=== PATIENT | female | born 1995 | race Caucasian/White ===

== ENCOUNTER 2019-09-24 13:44 | Observation (INO) | payer OTHER ==
[2019-09-24] MEDS ORDERED: Lactated Ringers 1,000 ML IV ONE (14:33)
[2019-09-24] MEDS ORDERED: fentaNYL 100 MCG/2 ML SDV IVPUSH ONE (14:33)
[2019-09-24] MEDS ORDERED: Sodium Chloride 0.9% 10 ML Syringe FLUSH PRN (14:43)
[2019-09-24] MEDS ORDERED: Iopamidol 612 MG/ML 100 ML Bottle IVPUSH ONE ×2 (14:43→15:46)
--- NOTE | 2019-09-24 15:29 | PCM.SN.2 ---
- Free Text/Narrative Note: Called to start IV and obtain labs. Routine ultrasound IV start X1 attempt in right proximal basillic vein with 20g 1.88" catheter. Sterile chloroprep. Secured with tegaderm in usual fashion.
[2019-09-24] MEDS ORDERED: Sodium Chloride 0.9% 10 ML Syringe FLUSH ONE (15:46)
[2019-09-24] MEDS ORDERED: Iopamidol 612 MG/ML 50 ML SDV IVPUSH ONE (15:46)
--- NOTE | 2019-09-24 16:23 | EDM.PDOC ---
ED HPI GENERAL MEDICAL PROBLEM - General Chief Complaint: Trauma Stated Complaint: [facility] Time Seen by Provider: 09/24/19 13:44 - History of Present Illness INITIAL COMMENTS - FREE TEXT/NARRATIVE: 24-year-old female brought into the emergency room by EMS after having a mishap with a horse. Patient was riding a horse the horse spooked reared back and fell backwards the patient stayed on the horse however the patient landed on her buttocks and then the horse landed on her over her pelvis. The patient complains of hip pain bilaterally. She denies hitting her head she is alert and oriented. She was picked up by EMS put in an immobilization using an air assisted backboard. Patient denies any other pain at this time other than her hips. Patient believes she is up-to-date on all her immunizations. Denies any nausea or vomiting just has her hip pain. Left Buttock Pain Score (Numeric/FACES): 4 Left Pelvic Pain Score (Numeric/FACES): 4 - Related Data Allergies Allergy/AdvReac Type Severity Reaction Status Date / Time acetaminophen [From Percocet] Allergy Severe Chest Pain Verified 09/24/19 13:55 oxycodone Allergy Severe Chest Pain Verified 09/24/19 13:55 Home Meds: Home Meds Control 1 tab PO DAILY 09/24/19 [History] Past Medical History - Past Surgical History HEENT Surgical History: Reports: Oral Surgery Social & Family History - Tobacco Use Smoking Status *Q: Never Smoker - Caffeine Use Caffeine Use: Reports: Coffee - Recreational Drug Use Recreational Drug Use: No Review of Systems - Review of Systems Review Of Systems: See Below Constitutional: Reports: No Symptoms Eyes: Reports: No Symptoms Ears: Reports: No Symptoms Nose: Reports: No Symptoms Mouth/Throat: Reports: No Symptoms Respiratory: Reports: No Symptoms Cardiovascular: Reports: No Symptoms GI/Abdominal: Reports: No Symptoms Genitourinary: Reports: No Symptoms Musculoskeletal: Reports: Other (Hip and pelvis pain) Skin: Reports: No Symptoms Neurological: Reports: No Symptoms Psychiatric: Reports: No Symptoms ED EXAM, GENERAL - Physical Exam Exam: See Below Free Text/Narrative:: The patient was really had a primary survey no real problems identified there secondary survey showed some bilateral hip pain. Abdominal exam was entirely within normal limits. Heart sounds and lateral breath sounds were normal. She did not appear to have any cervical midline discomfort exam done with a c- collar in place. The patient was then gently logrolled. Completed the C-spine exam and the c-collar was removed the patient was relieved somewhat with this. Examination of her back reveals no step-off deformity with palpation along the spine. She demonstrated very good breath sounds noted bilaterally. No other areas of ecchymosis or significant skin changes noted at that time. The backboard was removed patient was gently laid back onto her back. Had the remainder of her exam done no other abnormalities noted except for her bilateral hip pain. However direct palpation over the greater trochanters did not really elicit much discomfort pelvic injury was suspected and she was sent over for an abdominal pelvic CT. Exam Limited By: No Limitations General Appearance: Other (She does well until she is moved and this is uncomfortable for her) Eye Exam: Bilateral Eye: Normal Inspection Ears: Normal External Exam, Normal Canal, Hearing Grossly Normal, Normal TMs Nose: Normal Inspection, Normal Mucosa, No Blood Throat/Mouth: Normal Inspection, Normal Lips, Normal Teeth, Normal Gums, Normal Oropharynx, Normal Voice, No Airway Compromise Head: Atraumatic, Normocephalic Neck: Normal Inspection, Supple, Non-Tender, Full Range of Motion, Other (C- collar was removed the patient was able to demonstrate full flexion of her neck she could bring her chin all the way down to her chest without any discomfort she can turn her head from side to side without any discomfort she could look all the way up without any discomfort.). No: Tender Lateral, Tender Midline Respiratory/Chest: No Respiratory Distress, Lungs Clear, Normal Breath Sounds, No Accessory Muscle Use, Chest Non-Tender, Other (Of the chest anteriorly posteriorly and laterally reveals no palpable discomfort with significant pressure over the rib cage. Breath sounds are noted to be equal and appropriate bilaterally) Cardiovascular: Regular Rate, Rhythm, No Edema, No Murmur GI/Abdominal: Normal Bowel Sounds, Soft, Non-Tender, No Organomegaly, Other ( Patient did have some discomfort with palpation over the pelvis however did not demonstrate any pelvis instability). No: Pelvis Stable Back Exam: Normal Inspection. No: CVA Tenderness (L), Muscle Spasm, Paraspinal Tenderness, Vertebral Tenderness Extremities: Normal Inspection, No Pedal Edema Neurological: Alert, Oriented, CN II-XII Intact, Normal Cognition Psychiatric: Normal Affect, Normal Mood Skin Exam: Warm, Dry, Intact Lymphatic: No Adenopathy Course - Vital Signs Last Recorded V/S: Last Vital Signs Temp 37.0 C 09/24/19 18:40 Pulse 92 09/24/19 18:40 Resp 20 09/24/19 18:40 BP 99/71 09/24/19 18:40 Pulse Ox 99 09/24/19 18:40 - Orders/Labs/Meds Orders: Active Orders 24 hr Category Date Time Status Abdomen Pelvis w Cont [CT] Stat Exams 09/24/19 14:29 Taken Femur Min 2V Lt [CR] Stat Exams 09/24/19 16:12 Taken Femur Min 2V Rt [CR] Stat Exams 09/24/19 16:12 Taken Sodium Chloride 0.9% [Saline Flush] Med 09/24/19 14:43 Active 10 ml FLUSH ONETIME PRN Medication Orders Sodium Chloride (Saline Flush) 10 ml FLUSH ONETIME PRN PRN Reason: Keep Vein Open Last Admin: 09/24/19 15:15 Dose: 10 ml Labs: Laboratory Tests 09/24/19 09/24/19 09/24/19 Range/Units 15:15 15:15 17:10 WBC 16.03 H (3.98-10.04) K/mm3 RBC 5.08 (3.98-5.22) M/mm3 Hgb 15.6 (11.2-15.7) gm/dl Hct 44.9 (34.1-44.9) % MCV 88.4 (79.4-94.8) fl MCH 30.7 (25.6-32.2) pg MCHC 34.7 (32.2-35.5) g/dl RDW Std Deviation 41.1 (36.4-46.3) fL Plt Count 337 (182-369) K/mm3 MPV 10.0 (9.4-12.3) fl Neut % (Auto) 84.9 H (34.0-71.1) % Lymph % (Auto) 7.9 L (19.3-51.7) % Page % (Auto) 6.6 (4.7-12.5) % Eos % (Auto) 0.1 L (0.7-5.8) Baso % (Auto) 0.1 (0.1-1.2) % Neut # (Auto) 13.64 H (1.56-6.13) K/mm3 Lymph # (Auto) 1.26 (1.18-3.74) K/mm3 [place] # (Auto) 1.05 H (0.24-0.36) K/mm3 Eos # (Auto) 0.01 L (0.04-0.36) K/mm3 Baso # (Auto) 0.01 (0.01-0.08) K/mm3 Manual Slide Review Sodium 139 (136-145) mEq/L Potassium 3.5 (3.5-5.1) mEq/L Chloride 102 (98-107) mEq/L Carbon Dioxide 27 (21-32) mEq/L Anion Gap 13.5 (5-15) BUN 12 (7-18) mg/dL Creatinine 0.9 (0.55-1.02) mg/dL Est Cr Clr Drug Dosing 81.11 mL/min Estimated GFR (MDRD) > 60 (>60) mL/min BUN/Creatinine Ratio 13.3 L (14-18) Glucose 93 (74-106) mg/dL Calcium 9.5 (8.5-10.1) mg/dL Total Bilirubin 0.6 (0.2-1.0) mg/dL AST 36 (15-37) U/L ALT 44 (14-59) U/L Alkaline Phosphatase 194 H (46-116) U/L Total Protein 7.8 (6.4-8.2) g/dl Albumin 4.0 (3.4-5.0) g/dl Globulin 3.8 gm/dL Albumin/Globulin Ratio 1.1 (1-2) Lipase 94 (73-393) U/L Urine Color Yellow (Yellow) Urine Appearance Clear (Clear) Urine pH 7.0 (5.0-8.0) Ur Specific [place] 1.020 (1.005-1.030) Urine Protein Negative (Negative) Urine Glucose (UA) Negative (Negative) Urine Ketones Negative (Negative) Urine Occult Blood Trace-lysed H (Negative) Urine Nitrite Negative (Negative) Urine Bilirubin Negative (Negative) Urine Urobilinogen 0.2 (0.2-1.0) Ur Leukocyte Esterase Negative (Negative) Urine RBC 0-5 (0-5) /hpf Urine WBC 0-5 (0-5) /hpf Ur Squamous Epith Cells 0-5 (0-5) /hpf Urine Bacteria Few (FEW) /hpf Urine Mucus Few (FEW) /hpf Meds: Medications Generic Name Dose Route Start Last Admin Trade Name Itzel PRN Reason Stop Dose Admin Sodium Chloride 10 ml 09/24/19 14:43 09/24/19 15:15 Saline Flush FLUSH 10 ml ONETIME PRN Administration Keep Vein Open Discontinued Medications Generic Name Dose Route Start Last Admin Trade Name Itzel PRN Reason Stop Dose Admin Fentanyl 50 mcg 09/24/19 14:33 09/24/19 18:41 Sublimaze IVPUSH 09/24/19 14:34 50 mcg ONETIME ONE Administration Lactated Ringer's 1,000 mls @ 999 mls/hr 09/24/19 14:33 09/24/19 15:34 Ringers, Lactated IV 09/24/19 15:33 999 mls/hr .BOLUS ONE Administration Iopamidol 125 ml 09/24/19 14:43 Isovue-300 (61%) IVPUSH 09/24/19 14:44 ONETIME ONE Iopamidol 100 ml 09/24/19 15:46 09/24/19 15:55 Isovue-300 (61%) IVPUSH 09/24/19 15:47 100 ml ONETIME ONE Administration Iopamidol 50 ml 09/24/19 15:46 09/24/19 15:55 Isovue-300 (61%) IVPUSH 09/24/19 15:47 25 ml ONETIME ONE Administration Ondansetron HCl Confirm 09/24/19 19:17 09/24/19 19:27 Zofran Administered 09/24/19 19:18 Not Given Dose 4 mg .ROUTE .STK-MED ONE Ondansetron HCl 4 mg 09/24/19 19:20 09/24/19 19:22 Zofran IVPUSH 09/24/19 19:21 4 mg ONETIME ONE Administration Sodium Chloride 10 ml 09/24/19 15:46 09/24/19 15:56 Saline Flush FLUSH 09/24/19 15:47 10 ml ONETIME ONE Administration - Re-Assessments/Exams Free Text/Narrative Re-Assessment/Exam: 09/24/19 16:18 Patient evaluated labs ordered x-rays ordered however her hip x-ray is were canceled somehow. We will check x-rays of her femurs bilaterally. Her CT was obtained abdomen and pelvis which shows a left pelvic ring fracture no other acute changes noted. At this point she is doing better if she has not moved too much. Would like to run this by orthopedics but want to get the femur x- rays prior visualized portion of the hip joints look normal on the CT. 09/24/19 17:00 Still awaiting x-rays of the femurs bilaterally 09/24/19 19:38 Did get the x-rays done of the femur talked over with Dr. Sanchez orthopedic at [facility] in [place] who recommends conservative management the patient could not go home or stay in the hospital until she gets up up on her feet. Discussed this options with the patient and initially the patient thought she wanted to stay in the hospital however she lives in [place] it decided maybe she be better off going home. I did discuss situation with Dr. Gutiérrez, our hospitalist, who is willing to admit the patient. We did attempt to stand the patient up and she tolerated this from a pain standpoint. However she became lightheaded her blood pressure dropped she became diaphoretic and lightheaded. The patient was put back in bed and would like to eat something she was given a sandwich we will see how she does after this. 09/24/19 20:34 Did get the patient back up and ambulate after she ate she was feeling better. However she can only go a couple steps and the pain became too severe. The patient does not really have any significant pain unless she is really trying to do something changing positions or get up and ambulate. She also got pale and a little diaphoretic this time when she stood up. Dr. Glass will assume care of the patient at this time. The patient understands that she needs to stay in the hospital at this point. Departure - Departure Time of Disposition: 20:36 Disposition: Refer to Observation Clinical Impression: Closed fracture of left pelvis - Discharge Information Referrals: PCP,Not In Area [Primary Care Provider] - Forms: ED Department Discharge Sepsis Event Note - Evaluation Sepsis Screening Result: No Definite Risk - Focused Exam Vital Signs: Vital Signs Temp Pulse Resp BP Pulse Ox 09/24/19 18:40 37.0 C 92 20 99/71 99 09/24/19 16:11 37.2 C 86 18 97/70 96 09/24/19 15:25 36.9 C 100 16 95/69 100 09/24/19 13:57 36.9 C 99 13 109/79 100 Date Exam was Performed: 09/24/19 Time Exam was Performed: 20:34 - My Orders Last 24 Hours: My Active Orders 09/24/19 14:29 Abdomen Pelvis w Cont [CT] Stat 09/24/19 14:43 Sodium Chloride 0.9% [Saline Flush] 10 ml FLUSH ONETIME PRN 09/24/19 16:12 Femur Min 2V Lt [CR] Stat Femur Min 2V Rt [CR] Stat - Assessment/Plan Last 24 Hours: My Active Orders 09/24/19 14:29 Abdomen Pelvis w Cont [CT] Stat 09/24/19 14:43 Sodium Chloride 0.9% [Saline Flush] 10 ml FLUSH ONETIME PRN 09/24/19 16:12 Femur Min 2V Lt [CR] Stat Femur Min 2V Rt [CR] Stat
[2019-09-24] MEDS ORDERED: Ondansetron 4 MG/2 ML SDV ONE (19:17)
[2019-09-24] MEDS ORDERED: Ondansetron 4 MG/2 ML SDV IVPUSH ONE (19:20)
[2019-09-24] MEDS ORDERED: Ondansetron 4 MG/2 ML SDV IV PRN (21:21)
[2019-09-24] MEDS ORDERED: Acetaminophen 325 MG Tab PO PRN (21:21)
--- NOTE | 2019-09-24 21:43 | PCM.HP.2 ---
H&P History of Present Illness - General Date of Service: 09/24/19 Admit Problem/Dx: Admission Diagnosis/Problem Admission Diagnosis/Problem Closed fracture of pelvis - History of Present Illness Initial Comments - Free Text/Narative: 22-year-old female brought into the emergency department by EMS after having a horse fall backwards on her. Patient was moving cattle and riding a horse when the horse got spooked, reared back, and then fell backwards on top of the patient. Patient landed on her back and buttocks and the horse landed on her left pelvis. Horse then rolled off. Patient denies any loss of consciousness or hitting her head. She had some numbness initially down her legs although she can move them. She did not move and waited for EMS. When patient arrived at the emergency department a trauma alert was called. Ultimately a CT of the abdomen and pelvis with contrast was performed. Left pelvic ring fracture, comminuted left superior pubic ramus fracture, nondisplaced inferior pubic ramus fracture, with intact symphysis pubis and no associated joint diastasis. Bilateral femur x-rays were negative for fracture. Emergency department provider did talk to the on-call orthopedic surgeon at [facility] in [place] who recommended conservative management. Patient tried 2 times to be able to walk but became lightheaded and dizzy with each. At that point it was felt that she should be admitted for pain control and physical therapy. Patient had received IV fentanyl, liter of LR, and Zofran in the emergency department. She had a slight leukocytosis with a white count of 16,000 likely secondary to stress reaction. Otherwise labs were normal. Left Buttock Pain Score (Numeric/FACES): 4 Left Pelvic Pain Score (Numeric/FACES): 4 - Related Data Allergies/Adverse Reactions: Allergies Allergy/AdvReac Type Severity Reaction Status Date / Time oxycodone Allergy Severe Chest Pain Verified 09/24/19 13:55 Home Medications: Home Meds Control 1 tab PO DAILY 09/24/19 [History] Methylphenidate HCl [Concerta] 27 mg PO DAILY 09/25/19 [History] Past Medical History - Past Surgical History HEENT Surgical History: Reports: Oral Surgery Social & Family History - Tobacco Use Smoking Status *Q: Never Smoker - Caffeine Use Caffeine Use: Reports: Coffee - Recreational Drug Use Recreational Drug Use: No H&P Review of Systems - Review of Systems: Review Of Systems: Comprehensive ROS is negative, except as noted in HPI. Exam - Exam Exam: See Below - Vital Signs Vital Signs: Last Vital Signs Temp 98.6 F 09/24/19 18:40 Pulse 92 09/24/19 18:40 Resp 20 09/24/19 18:40 BP 99/71 09/24/19 18:40 Pulse Ox 99 09/24/19 18:40 Weight: 160 lb - Exam Quality Assessment: No: Supplemental Oxygen General: Alert, Oriented, 4 HEENT: Conjunctiva Clear, Hearing Intact, Mucosa Moist & [place] Neck: Supple, Trachea Midline, 2 Lungs: Clear to Auscultation, Normal Respiratory Effort Cardiovascular: Regular Rate, Regular Rhythm GI/Abdominal Exam: Normal Bowel Sounds, Soft, Non-Tender, No Organomegaly, No Distention, No Abnormal Bruit, No Mass Extremities: Normal Inspection, Normal Range of Motion, Non-Tender, No Pedal Edema, Normal Capillary Refill, Leg Pain Peripheral Pulses: 2+: Posterior Tibial (L), Posterior Tibial (R), Dorsalis Pedis (L), Dorsalis Pedis (R) Skin: Warm, Dry, Intact Neurological: Cranial Nerves Intact, Reflexes Equal Bilateral Neuro Extensive - Mental Status: Alert, Oriented x3, Normal Mood/Affect, Normal Cognition, Memory Intact Neuro Extensive - Motor, Sensory, Reflexes: CN II-XII Intact, Other (Sensation intact to lower extremities to light touch.) Psychiatric: Alert, Normal Affect, Normal Mood - Patient Data Lab Results Last 24 hrs: Laboratory Results - last 24 hr 09/24/19 09/24/19 09/24/19 Range/Units 15:15 15:15 17:10 WBC 16.03 H (3.98-10.04) K/mm3 RBC 5.08 (3.98-5.22) M/mm3 Hgb 15.6 (11.2-15.7) gm/dl Hct 44.9 (34.1-44.9) % MCV 88.4 (79.4-94.8) fl MCH 30.7 (25.6-32.2) pg MCHC 34.7 (32.2-35.5) g/dl RDW Std Deviation 41.1 (36.4-46.3) fL Plt Count 337 (182-369) K/mm3 MPV 10.0 (9.4-12.3) fl Neut % (Auto) 84.9 H (34.0-71.1) % Lymph % (Auto) 7.9 L (19.3-51.7) % [place] % (Auto) 6.6 (4.7-12.5) % Eos % (Auto) 0.1 L (0.7-5.8) Baso % (Auto) 0.1 (0.1-1.2) % Neut # (Auto) 13.64 H (1.56-6.13) K/mm3 Lymph # (Auto) 1.26 (1.18-3.74) K/mm3 [place] # (Auto) 1.05 H (0.24-0.36) K/mm3 Eos # (Auto) 0.01 L (0.04-0.36) K/mm3 Baso # (Auto) 0.01 (0.01-0.08) K/mm3 Manual Slide Review Sodium 139 (136-145) mEq/L Potassium 3.5 (3.5-5.1) mEq/L Chloride 102 (98-107) mEq/L Carbon Dioxide 27 (21-32) mEq/L Anion Gap 13.5 (5-15) BUN 12 (7-18) mg/dL Creatinine 0.9 (0.55-1.02) mg/dL Est Cr Clr Drug Dosing 81.11 mL/min Estimated GFR (MDRD) > 60 (>60) mL/min BUN/Creatinine Ratio 13.3 L (14-18) Glucose 93 (74-106) mg/dL Calcium 9.5 (8.5-10.1) mg/dL Total Bilirubin 0.6 (0.2-1.0) mg/dL AST 36 (15-37) U/L ALT 44 (14-59) U/L Alkaline Phosphatase 194 H (46-116) U/L Total Protein 7.8 (6.4-8.2) g/dl Albumin 4.0 (3.4-5.0) g/dl Globulin 3.8 gm/dL Albumin/Globulin Ratio 1.1 (1-2) Lipase 94 (73-393) U/L Urine Color Yellow (Yellow) Urine Appearance Clear (Clear) Urine pH 7.0 (5.0-8.0) Ur Specific [place] 1.020 (1.005-1.030) Urine Protein Negative (Negative) Urine Glucose (UA) Negative (Negative) Urine Ketones Negative (Negative) Urine Occult Blood Trace-lysed H (Negative) Urine Nitrite Negative (Negative) Urine Bilirubin Negative (Negative) Urine Urobilinogen 0.2 (0.2-1.0) Ur Leukocyte Esterase Negative (Negative) Urine RBC 0-5 (0-5) /hpf Urine WBC 0-5 (0-5) /hpf Ur Squamous Epith Cells 0-5 (0-5) /hpf Urine Bacteria Few (FEW) /hpf Urine Mucus Few (FEW) /hpf Result Diagrams: 09/24/19 15:15 09/24/19 15:15 Sepsis Event Note - Evaluation Sepsis Screening Result: No Definite Risk - Focused Exam Vital Signs: Vital Signs Temp Pulse Resp BP Pulse Ox 09/24/19 18:40 98.6 F 92 20 99/71 99 09/24/19 16:11 98.9 F 86 18 97/70 96 09/24/19 15:25 98.5 F 100 16 95/69 100 09/24/19 13:57 98.4 F 99 13 109/79 100 Date Exam was Performed: 09/25/19 Time Exam was Performed: 11:34 Problem List Initiated/Reviewed/Updated: Yes Orders Last 24hrs: Active Orders 24 hr Category Date Time Status Admission Status [Patient Status] [ADT] Routine ADT 09/24/19 21:12 Active Oxygen Therapy [RC] PRN Care 09/24/19 21:21 Ordered Up With Assistance [RC] ASDIRECTED Care 09/24/19 21:21 Ordered VTE/DVT Education [RC] PER UNIT ROUTINE Care 09/24/19 21:21 Ordered Vital Signs [RC] ASDIRECTED Care 09/24/19 21:21 Ordered Regular Diet [DIET] Diet 09/25/19 Breakfast Ordered Abdomen Pelvis w Cont [CT] Stat Exams 09/24/19 14:29 Taken Femur Min 2V Lt [CR] Stat Exams 09/24/19 16:12 Taken Femur Min 2V Rt [CR] Stat Exams 09/24/19 16:12 Taken Acetaminophen [Tylenol] Med 09/24/19 21:21 Ordered 650 mg PO Q4H PRN HYDROmorphone [Dilaudid] Med 09/24/19 21:21 Ordered 0.5 mg IVPUSH Q2H PRN Ketorolac [Toradol] Med 09/24/19 21:21 Ordered 30 mg IV Q6H PRN Ondansetron [Zofran] Med 09/24/19 21:21 Ordered 4 mg IV Q4H PRN Sodium Chloride 0.9% [Saline Flush] Med 09/24/19 14:43 Active 10 ml FLUSH ONETIME PRN traMADol [Ultram] Med 09/24/19 21:24 Ordered 100 mg PO Q6H PRN Resuscitation Status Routine Resus Stat 09/24/19 21:21 Ordered Medication Orders Acetaminophen (Tylenol) 650 mg PO Q4H PRN PRN Reason: Pain (Mild 1-3)/fever Hydromorphone HCl (Dilaudid) 0.5 mg IVPUSH Q2H PRN PRN Reason: Pain (severe 7-10) Ketorolac Tromethamine (Toradol) 30 mg IV Q6H PRN PRN Reason: Pain (moderate 4-6) Ondansetron HCl (Zofran) 4 mg IV Q4H PRN PRN Reason: Nausea/Vomiting Sodium Chloride (Saline Flush) 10 ml FLUSH ONETIME PRN PRN Reason: Keep Vein Open Last Admin: 09/24/19 15:15 Dose: 10 ml Tramadol HCl (Ultram) 100 mg PO Q6H PRN PRN Reason: Pain (moderate 4-6) Assessment/Plan Comment:: Left pelvic ring fracture after fall from horse * Horse reared back and fell backwards landing on her left pelvis. * CT was reviewed by Dr. Duong in orthopedic surgery at [facility] in [place]. He recommends conservative management. * Patient was unable to be discharged home secondary to pain and dizziness with standing. * Mild leukocytosis secondary to stress reaction. Plan * Refer for observation * Pain management * PT in the morning * Nursing care to help with ambulation * DC tomorrow if appropriate. CODE STATUS: Full code - Mortality Measure Prognosis:: Good
[2019-09-24] MEDS: HYDROmorphone 0.5 MG/0.5 ML Syringe IVPUSH PRN (22:46)
[2019-09-24] MEDS: Ketorolac 30 MG/ML SDV IV PRN (22:52)
[2019-09-25] MEDS: traMADol 50 MG Tab PO PRN ×2 (04:27→12:28)
[2019-09-25] MEDS: HYDROmorphone 0.5 MG/0.5 ML Syringe IVPUSH PRN ×2 (04:27→08:59)
--- NOTE | 2019-09-25 09:56 | CR ---
Left femur: AP and lateral views left femur were obtained. Comparison: No previous femur study. No fracture or other bony abnormality is seen. No soft tissue abnormality is appreciated. Impression: 1. Nothing acute is seen on 2 view left femur study. Diagnostic code #1 Study was dictated in MDT
--- NOTE | 2019-09-25 09:56 | CT ---
CT abdomen and pelvis Technique: Multiple axial sections were obtained from slightly below the top the liver inferiorly to the pubic symphysis. Intravenous contrast was utilized. No oral contrast has been given. Comparison: No prior abdominal imaging is available. Findings: Visualized lung bases show nothing acute. Liver shows no focal parenchymal abnormality. Spleen appears within normal limits. Gallbladder contains no calcified gallstones. Pancreas appears within normal limits. Adrenal glands show no nodule. Kidneys show symmetric contrast enhancement without hydronephrosis or mass. Aorta shows no aneurysm. No retroperitoneal adenopathy or mesenteric abnormalities are seen. No pelvic mass or adenopathy is seen. No free fluid is seen. Asymmetric thickening of the pelvic sidewall on the left side compatible with small intrapelvic side wall hematoma. Nondisplaced fracture is noted within the left inferior pubic ramus with minimally displaced fracture within the superior pubic ramus near the pubic symphysis. No additional pelvic fracture is seen. Lumbar spine shows no fracture. Impression: 1. Left pubic rami fractures as noted above. Adjacent small pelvic sidewall hematoma. 2. No other acute abnormality is appreciated on CT study of the abdomen and pelvis. Diagnostic code #3 Agree with preliminary report issued by [facility] ([facility] preliminary report dictated on 09/24/19, 5:04 PM Central Daylight Time) Study was dictated in MDT
--- NOTE | 2019-09-25 09:56 | CR ---
Right femur: AP and lateral views of the right femur were obtained. Comparison: No previous femur study. No fracture or other bony abnormality is seen. Impression: 1. No abnormality is identified on 2 view right femur exam. Diagnostic code #1 Study was dictated in MDT
--- NOTE | 2019-09-25 11:47 | PCM.DCSUM1 ---
Discharge Summary - Hospital Course HPI Initial Comments: 24-year-old female brought into the emergency department by EMS after having a horse fall backwards on her. Patient was moving cattle and riding a horse when the horse got spooked, reared back, and then fell backwards on top of the patient. Patient landed on her back and buttocks and the horse landed on her left pelvis. Horse then rolled off. Patient denies any loss of consciousness or hitting her head. She had some numbness initially down her legs although she can move them. She did not move and waited for EMS. When patient arrived at the emergency department a trauma alert was called. Ultimately a CT of the abdomen and pelvis with contrast was performed. Left pelvic ring fracture, comminuted left superior pubic ramus fracture, nondisplaced inferior pubic ramus fracture, with intact symphysis pubis and no associated joint diastasis. Bilateral femur x-rays were negative for fracture. Emergency department provider did talk to the on-call orthopedic surgeon at [facility] in [place] who recommended conservative management. Patient tried 2 times to be able to walk but became lightheaded and dizzy with each. At that point it was felt that she should be admitted for pain control and physical therapy. Patient had received IV fentanyl, liter of LR, and Zofran in the emergency department. She had a slight leukocytosis with a white count of 16,000 likely secondary to stress reaction. Otherwise labs were normal. Diagnosis: Stroke: No - Discharge Data Discharge Date: 09/25/19 Discharge Disposition: Home, Self-Care 01 Condition: Stable - Referral to Home Health Primary Care Physician: PCP Not In Area - Discharge Diagnosis/Problem(s) (1) Closed fracture of left pelvis SNOMED Code(s): 22136778 ICD Code: S32.9XXA - FRACTURE OF UNSP PARTS OF LUMBOSACRAL SPINE AND PELVIS, INIT Status: Acute Current Visit: Yes - Patient Summary/Data Consults: Consultations 09/24/19 21:43 PT Evaluation and Treatment [CONS] Routine Hospital Course: Millicent was treated with Toradol, Dilaudid, and Ultram over the evening. Physical therapy evaluated her this morning and felt she was safe for discharge. Patient has family that came from [place] to pick her up. She has a front wheeled walker at home. - Patient Instructions Diet: Usual Diet as Tolerated Activity: As Tolerated (With front wheel walker) Driving: Do Not Drive Showering/Bathing: May Shower Other/Special Instructions: Follow-up with primary care provider in 1 to 2 weeks. - Discharge Plan *PRESCRIPTION DRUG MONITORING PROGRAM REVIEWED*: No *COPY OF PRESCRIPTION DRUG MONITORING REPORT IN PATIENT PETERSON: No Prescriptions/Med Rec: Ondansetron [Zofran ODT] 4 mg PO Q6H PRN #5 tab.dis PRN Reason: Nausea traMADol [Ultram] 100 mg PO Q6H PRN #20 tablet PRN Reason: Pain (Moderate 4-6) Home Medications: Home Meds Control 1 tab PO DAILY 09/24/19 [History] Methylphenidate HCl [Concerta] 27 mg PO DAILY 09/25/19 [History] Ondansetron [Zofran ODT] 4 mg PO Q6H PRN #5 tab.dis 09/25/19 [Rx] traMADol [Ultram] 100 mg PO Q6H PRN #20 tablet 09/25/19 [Rx] Oxygen Therapy Mode: Room Air Forms: ED Department Discharge Referrals: PCP,Not In Area [Primary Care Provider] - - Discharge Summary/Plan Comment DC Time >30 min.: No Discharge Summary/Plan Comment: Discharged home in stable condition. Follow-up with primary care provider in 2 weeks. - General Info Date of Service: 09/25/19 Admission Dx/Problem (Free Text: Admission Diagnosis/Problem Admission Diagnosis/Problem Closed fracture of pelvis Subjective Update: Patient states she is feeling better. Pain is a 1 with Ultram. Functional Status: Reports: Pain Controlled - Review of Systems General: Reports: No Symptoms HEENT: Reports: No Symptoms Pulmonary: Reports: No Symptoms Cardiovascular: Reports: No Symptoms Gastrointestinal: Reports: No Symptoms - Patient Data Vitals - Most Recent: Last Vital Signs Temp 98.1 F 09/25/19 07:46 Pulse 69 09/25/19 07:46 Resp 20 09/25/19 07:46 BP 95/57 L 09/25/19 07:46 Pulse Ox 99 09/25/19 07:46 Weight - Most Recent: 160 lb I&O - Last 24 hours: Intake & Output 09/24/19 09/25/19 09/25/19 22:59 06:59 14:59 Intake Total 300 120 Balance 300 120 Lab Results - Last 24 hrs: Laboratory Results - last 24 hr 09/24/19 09/24/19 09/24/19 Range/Units 15:15 15:15 17:10 WBC 16.03 H (3.98-10.04) K/mm3 RBC 5.08 (3.98-5.22) M/mm3 Hgb 15.6 (11.2-15.7) gm/dl Hct 44.9 (34.1-44.9) % MCV 88.4 (79.4-94.8) fl MCH 30.7 (25.6-32.2) pg MCHC 34.7 (32.2-35.5) g/dl RDW Std Deviation 41.1 (36.4-46.3) fL Plt Count 337 (182-369) K/mm3 MPV 10.0 (9.4-12.3) fl Neut % (Auto) 84.9 H (34.0-71.1) % Lymph % (Auto) 7.9 L (19.3-51.7) % [place] % (Auto) 6.6 (4.7-12.5) % Eos % (Auto) 0.1 L (0.7-5.8) Baso % (Auto) 0.1 (0.1-1.2) % Neut # (Auto) 13.64 H (1.56-6.13) K/mm3 Lymph # (Auto) 1.26 (1.18-3.74) K/mm3 [place] # (Auto) 1.05 H (0.24-0.36) K/mm3 Eos # (Auto) 0.01 L (0.04-0.36) K/mm3 Baso # (Auto) 0.01 (0.01-0.08) K/mm3 Manual Slide Review Sodium 139 (136-145) mEq/L Potassium 3.5 (3.5-5.1) mEq/L Chloride 102 (98-107) mEq/L Carbon Dioxide 27 (21-32) mEq/L Anion Gap 13.5 (5-15) BUN 12 (7-18) mg/dL Creatinine 0.9 (0.55-1.02) mg/dL Est Cr Clr Drug Dosing 81.11 mL/min Estimated GFR (MDRD) > 60 (>60) mL/min BUN/Creatinine Ratio 13.3 L (14-18) Glucose 93 (74-106) mg/dL Calcium 9.5 (8.5-10.1) mg/dL Total Bilirubin 0.6 (0.2-1.0) mg/dL AST 36 (15-37) U/L ALT 44 (14-59) U/L Alkaline Phosphatase 194 H (46-116) U/L Total Protein 7.8 (6.4-8.2) g/dl Albumin 4.0 (3.4-5.0) g/dl Globulin 3.8 gm/dL Albumin/Globulin Ratio 1.1 (1-2) Lipase 94 (73-393) U/L Urine Color Yellow (Yellow) Urine Appearance Clear (Clear) Urine pH 7.0 (5.0-8.0) Ur Specific [place] 1.020 (1.005-1.030) Urine Protein Negative (Negative) Urine Glucose (UA) Negative (Negative) Urine Ketones Negative (Negative) Urine Occult Blood Trace-lysed H (Negative) Urine Nitrite Negative (Negative) Urine Bilirubin Negative (Negative) Urine Urobilinogen 0.2 (0.2-1.0) Ur Leukocyte Esterase Negative (Negative) Urine RBC 0-5 (0-5) /hpf Urine WBC 0-5 (0-5) /hpf Ur Squamous Epith Cells 0-5 (0-5) /hpf Urine Bacteria Few (FEW) /hpf Urine Mucus Few (FEW) /hpf Med Orders - Current: Current Medications Acetaminophen (Tylenol) 650 mg PO Q4H PRN PRN Reason: Pain (Mild 1-3)/fever Hydromorphone HCl (Dilaudid) 0.5 mg IVPUSH Q2H PRN PRN Reason: Pain (severe 7-10) Last Admin: 09/25/19 08:59 Dose: 0.5 mg Ketorolac Tromethamine (Toradol) 30 mg IV Q6H PRN PRN Reason: Pain (moderate 4-6) Last Admin: 09/24/19 22:52 Dose: 30 mg Ondansetron HCl (Zofran) 4 mg IV Q4H PRN PRN Reason: Nausea/Vomiting Last Admin: 09/25/19 10:49 Dose: 4 mg Sodium Chloride (Saline Flush) 10 ml FLUSH ONETIME PRN PRN Reason: Keep Vein Open Last Admin: 09/24/19 15:15 Dose: 10 ml Tramadol HCl (Ultram) 100 mg PO Q6H PRN PRN Reason: Pain (moderate 4-6) Last Admin: 09/25/19 04:27 Dose: 100 mg Discontinued Medications Fentanyl (Sublimaze) 50 mcg IVPUSH ONETIME ONE Stop: 09/24/19 14:34 Last Admin: 09/24/19 18:41 Dose: 50 mcg Lactated Ringer's (Ringers, Lactated) 1,000 mls @ 999 mls/hr IV .BOLUS ONE Stop: 09/24/19 15:33 Last Admin: 09/24/19 15:34 Dose: 999 mls/hr Iopamidol (Isovue-300 (61%)) 125 ml IVPUSH ONETIME ONE Stop: 09/24/19 14:44 Last Admin: 09/25/19 02:55 Dose: Not Given Iopamidol (Isovue-300 (61%)) 100 ml IVPUSH ONETIME ONE Stop: 09/24/19 15:47 Last Admin: 09/24/19 15:55 Dose: 100 ml Iopamidol (Isovue-300 (61%)) 50 ml IVPUSH ONETIME ONE Stop: 09/24/19 15:47 Last Admin: 09/24/19 15:55 Dose: 25 ml Ondansetron HCl (Zofran) Confirm Administered Dose 4 mg .ROUTE .STK-MED ONE Stop: 09/24/19 19:18 Last Admin: 09/24/19 19:27 Dose: Not Given Ondansetron HCl (Zofran) 4 mg IVPUSH ONETIME ONE Stop: 09/24/19 19:21 Last Admin: 09/24/19 19:22 Dose: 4 mg Sodium Chloride (Saline Flush) 10 ml FLUSH ONETIME ONE Stop: 09/24/19 15:47 Last Admin: 09/24/19 15:56 Dose: 10 ml - Exam General: Reports: Alert, Oriented HEENT: Reports: Pupils Equal, Mucous Membr. Moist/[place] Neck: Reports: Supple Lungs: Reports: Clear to Auscultation, Normal Respiratory Effort Cardiovascular: Reports: Regular Rate, Regular Rhythm GI/Abdominal Exam: Normal Bowel Sounds, Soft, Non-Tender, No Organomegaly, No Distention, No Abnormal Bruit, No Mass Extremities: Normal Inspection, Normal Range of Motion, Non-Tender, No Pedal Edema, Normal Capillary Refill Skin: Reports: Warm, Dry, Intact Neurological: Reports: No New Focal Deficit Psy/Mental Status: Reports: Alert, Normal Affect, Normal Mood
[2019-09-25] MEDS: Ketorolac 30 MG/ML SDV IV PRN (12:28)
== END 2019-09-25 13:00 | disposition home or self-care (01) ==
LOC: JD.ED 13:44 → JD.MS 21:16
PROVIDERS: ADMIT Family Medicine; ATTEND Family Medicine
DX: S32.9XXA Fracture of unspecified parts of lumbosacral spine and pelvis, initial encounter for closed fracture (principal); D72.829 Elevated white blood cell count, unspecified; F43.9 Reaction to severe stress, unspecified; Z88.5 Allergy status to narcotic agent; Z88.8 Allergy status to other drugs, medicaments and biological substances; Z79.899 Other long term (current) drug therapy; V80.010A Animal-rider injured by fall from or being thrown from horse in noncollision accident, initial encounter; Y93.52 Activity, horseback riding
CPT/HCPCS: 36415; 73552; 74177; 80053; 81001; 83690; 85025; 96374; 96375; 97161; 99285; A9270; J1170; J1885; J2405; J3010; J7120; Q9967; 96376; G0378